=== PATIENT | female | born 1965 | race Caucasian/White ===

== ENCOUNTER 2018-08-14 13:41 | Day surgery (SDC) | payer BC ==
[~2018-08-14 13:41] MED LIST: Buffered Lidocaine 0.9% SYRIN* 5 ML/SYR SYRINGE INTRADERM ONE; Dexamethasone IV* 4 MG/ML 1 ML (4 MG) IV SLOW PU ONE; Famotidine IV* 10 MG/ML 2 ML (20 mg) IV ONE; Lactated Ringers 1000 ML Bag* 1,000 ML IV SCH
[2018-08-14] MEDS ORDERED: fentaNYL* 50 MCG/ML 2 ML VIAL (100 MCG VIAL) ONE ×2 (14:26→16:40)
[2018-08-14] MEDS ORDERED: Midazolam* 1 MG/ML 5 ML VIAL (5 MG) ONE ×2 (14:26→15:24)
[2018-08-14] MEDS ORDERED: Ketorolac INJ* 30 MG/ML 1 ML VIAL ONE (14:27)
[2018-08-14] MEDS ORDERED: Propofol* 10 MG/ML 20 ML BTL ONE (14:27)
[2018-08-14] MEDS ORDERED: Lidocaine 2% PF * 5 ML VIAL ONE (14:27)
[2018-08-14] MEDS ORDERED: Dexamethasone IV* 4 MG/ML 1 ML (4 MG) ONE (14:29)
[2018-08-14] MEDS ORDERED: Famotidine IV* 10 MG/ML 2 ML (20 mg) ONE (14:29)
[2018-08-14] MEDS ORDERED: ceFAZolin 2 GM PREMIX in ORs 2 GM/50 ML BAG IVPB ONE (14:35)
[2018-08-14] MEDS ORDERED: ROPIVACAINE 5 MG/ML 30 ML BTL (0.5%) ONE ×2 (14:46→14:47)
[2018-08-14] MEDS ORDERED: Ondansetron INJ* 2 MG/ML VIAL ONE (14:55)
[2018-08-14] MEDS ORDERED: KETAMINE HCL* 50 MG/ML 10 ML VIAL ONE (15:24)
[2018-08-14] MEDS ORDERED: Ondansetron INJ* 2 MG/ML VIAL IV PRN (17:41)
[2018-08-14] MEDS ORDERED: oxyCODONE/Acetamin 5/325 MG* TAB PO PRN (17:41)
[2018-08-14] MEDS ORDERED: Naloxone* 0.4 MG/ML 1 ML VIAL IV PRN (17:41)
[2018-08-14 18:36] VITALS: BP 124/65
== END 2018-08-14 19:06 | disposition home or self-care (01) ==
LOC: OR 13:41
PROVIDERS: ATTEND Plastic Surgery
DX: M18.12 Unilateral primary osteoarthritis of first carpometacarpal joint, left hand (principal); M19.90 Unspecified osteoarthritis, unspecified site
CPT/HCPCS: 76000; 88304; 88311; J0690; J1100; J1885; J2250; J2405; J2704; J2795; J3010

== ENCOUNTER → 2019-01-10 05:33 | Day surgery (SDC) | payer BC ==
--- NOTE | 2019-01-03 11:07 | HP ---
HISTORY AND PHYSICAL: DATE OF ADMISSION: 01/10/19 PROVIDER: Dr. Nora Oshea* (dictated by TED Shaffer). HISTORY OF PRESENT ILLNESS: Ms. Rasmussen is a 53-year-old woman who complains of months of severe right hand numbness and pain. She states pain is 9/10 in the right hand in the median nerve distribution. Her pain is made worse at night. She describes weakness in the hand with grasping items and pinching items. She has attempted nighttime splinting and activity modifications without any improvement. She had an EMG which was performed on her right upper extremity, which showed right carpal tunnel syndrome and borderline ulnar neuropathy at the elbow. The patient would like to proceed with a right carpal tunnel release performed by Dr. Nora Oshea. PAST MEDICAL HISTORY: 1. Right ACL tear. 2. Bilateral shoulder pain and surgery. 3. Left basal joint arthritis. PAST SURGICAL HISTORY: 1. ACL reconstruction. 2. Bilateral shoulder surgery. 3. Left rotator cuff repair. 4. Right capsulotomy. 5. Venous stripping. 6. Left basal joint reconstruction. MEDICATIONS: Gabapentin. ALLERGIES: No known drug allergies. FAMILY HISTORY: Maternal diabetes, heart disease, and hypertension. 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 She denies any tobacco or recreational drug use. She drinks 5 glasses of wine per week with dinner. She is normally very active and she is right-hand dominant. REVIEW OF SYSTEMS: General: The patient denies any fevers, chills, or night sweats. No known anesthesia problems. HEENT: The patient denies any headaches or lightheadedness. Cardio: The patient denies any chest pain, heart palpitations, or edema. Pulmonary: The patient denies any coughing or shortness of breath. GI: The patient denies any nausea, vomiting, constipation , or diarrhea. : The patient denies any urinary incontinence, frequency, or urgency. MSK: The patient denies any back pain or chronic fractures. Integument: The patient denies any rashes, lesions, lumps, or open sores. PHYSICAL EXAMINATION GENERAL: The patient is alert and oriented x3. Appropriate mood and affect. Appropriate dress and hygiene. Non-antalgic gait bilateral well coordinated upper and lower extremities. PULMONARY: Lungs are clear to auscultation bilaterally. No wheezes, rales, or rhonchi. CARDIO: Regular rate and rhythm. Normal S1 and S2. No appreciable S3 or S4. No murmurs, rubs, or gallops. MSK: Right upper extremity: The patient's skin is intact. No abrasions or open wounds. No palpable masses or lymph nodes. She has mild thenar atrophy when compared to the contralateral side. She has a positive Tinel's and Phalen' s at the wrist. Decreased sensation to light touch and pinprick over the median nerve distribution. 4/5 pinch and product developer strength. She has a 2+ radial pulse. ASSESSMENT: Right carpal tunnel syndrome. PLAN/RECOMMENDATIONS: To the OR for a right carpal tunnel release on 01/10/19. The risks and benefits of the operative treatment were discussed with the patient. She would like to proceed. The patient will follow up in 10 to 14 days for followup and suture removal. TED SHAFFER [id number]/[facility] #: [id number] [place]
[~2019-01-10 05:33] MED LIST changes: -Buffered Lidocaine 0.9% SYRIN* 5 ML/SYR SYRINGE INTRADERM ONE; +Buffered Lidocaine 1% SYRIN* 1 ML/SYRINGE INTRADERM ONE; +Bupivacaine 0.25% SDV PF* 10 ML VIAL INJ ONE; -Dexamethasone IV* 4 MG/ML 1 ML (4 MG) IV SLOW PU ONE; +Dexamethasone TAB* 4 MG ONE; +Dexamethasone TAB* 4 MG PO ONE; +DiMENhydriNATE IV* 50 MG/ML VIAL IV PUSH PRN; +Famotidine IV* 10 MG/ML 2 ML (20 mg) ONE; +KETAMINE HCL* 50 MG/ML 10 ML VIAL ONE; +Ketorolac INJ* 30 MG/ML 1 ML VIAL ONE; +Lidocaine 2% PF * 5 ML VIAL ONE; +Midazolam* 1 MG/ML 5 ML VIAL (5 MG) ONE; +Naloxone* 0.4 MG/ML 1 ML VIAL IV PRN; +Ondansetron ODT TAB* 4 MG ONE; +Ondansetron TAB* 4 MG PO ONE; +PROCHLORPERAZINE INJ 5 MG/ML 2 ML VIAL IV PRN; +Propofol* 10 MG/ML 20 ML BTL ONE; +ceFAZolin 2 GM PREMIX in ORs 2 GM/50 ML BAG IVPB ONE; +fentaNYL* 50 MCG/ML 2 ML VIAL (100 MCG VIAL) IV PRN; +fentaNYL* 50 MCG/ML 2 ML VIAL (100 MCG VIAL) ONE; +oxyCODONE/Acetamin 5/325 MG* TAB PO PRN
[2019-01-10 08:13] VITALS: BP 104/72
--- NOTE | 2019-01-10 23:19 | OP ---
DATE OF OPERATION: 01/10/19 - [facility] DATE OF : [birth year] ATTENDING SURGEON: Nora Oshea MD TIMBER INSPECTOR: TED Jordan. Ms. Rios did help throughout the procedure with preparation of the hand, wound retraction, and wound closure. ANESTHESIOLOGIST: Dr. Miller. ANESTHESIA: Local MAC. PRE-OP DIAGNOSIS: Right carpal tunnel syndrome of the wrist, median nerve compression at the wrist. POST-OP DIAGNOSIS: Right carpal tunnel syndrome of the wrist, median nerve compression at the wrist. OPERATIVE PROCEDURE: Open right carpal tunnel release of the wrist. TOURNIQUET TIME: 6 minutes. ESTIMATED BLOOD LOSS: Less than 25 cc. COMPLICATIONS: None. SPECIMEN: None. BRIEF HISTORY/INDICATION: Ms. Rasmussen is a 53-year-old female with 6 months or more of right hand numbness and pain. She was diagnosed with carpal tunnel syndrome, severe on EMG nerve conduction study. She failed conservative treatment. Due to continued pain and numbness, she wished to proceed with open carpal tunnel release at the right wrist. Informed consent was obtained from the patient. She understood the risks of surgery included, but were not limited to bleeding, infection, damage to nearby structures, continued pain, need for further surgery, continued symptoms, slight weakness and numbness, anesthesia complications, stroke, heart attack, blood clot and . She wished to proceed. INTRAOPERATIVE FINDINGS: Intraoperatively the patient does have a thickened transverse carpal tunnel ligament and synovitis around the tendons of the carpal tunnel. DESCRIPTION OF PROCEDURE: Ms. Rasmussen was identified in the preanesthesia unit. Her right wrist was marked as the correct operative site. Informed consent was signed and placed in the chart. The patient was taken to the operating room and placed under local MAC anesthesia. Tourniquet was placed on the right upper arm. Right upper extremity was prepped and draped in the usual sterile fashion. Preop time-out was made to correctly identify the patient, side, and site. Appropriate perioperative antibiotics were given within 1 hour of incision. 10 cc of 0.55 Marcaine was placed in the carpal tunnel and subcutaneous tissue without difficulty. Tourniquet was inflated. A 3 cm longitudinal incision was made over the thenar crease. Tenotomy scissors were used to dissect down to the palmar fascia. Palmar fascia was incised in line with the skin incision. The transverse carpal ligament was visualized. A #15 blade was used to meticulously incise the transverse carpal tunnel ligament in a longitudinal fashion, continued proximally until there was no further compression of the median nerve, this was continued distally until the palmar fat was encountered and there was no additional compression of the nerve. The carpal tunnel contents were noted to have synovitis and inflamed tissue. The nerve had some obvious compression there. No other abnormalities were noted. Tourniquet was turned down at 6 minutes. The wound was copiously irrigated with sterile saline. The incision was closed with interrupted vertical mattress 3-0 nylon suture. Sterile Xeroform, 4x4s, and Webril were used to cover the incisions. Well padded volar plaster splint was applied. The patient will be nonweightbearing right upper extremity. She will be encouraged to move her thumb and all fingers. She will elevate the hand, use some ice. She was taken to PACU in stable condition and will follow up in 2 weeks' time for a recheck. [id number]/[facility] #: [id number] TIMBO
== END | disposition home or self-care (01) ==
LOC: OR 05:33
PROVIDERS: ATTEND Orthopaedic Surgery Adult Reconstructive Orthopaedic Surgery
DX: G56.01 Carpal tunnel syndrome, right upper limb (principal)
CPT/HCPCS: A9270-GY; J0690; J1885; J2250; J2704; J3010; J3490; J8540

== ENCOUNTER 2019-07-18 09:00 | Observation (INO) | payer BC ==
--- NOTE | 2019-07-22 13:17 | HP ---
HISTORY AND PHYSICAL: DATE OF ADMISSION/SURGERY: 07/30/19 DATE OF OFFICE VISIT: 07/22/19 SURGEON: Nora Oshea MD * (DICTATED BY TED ESTRADA) PROCEDURE: Right total knee arthroplasty. CHIEF COMPLAINT: Right knee pain. HISTORY OF PRESENT ILLNESS: Ms. Rasmussen is a 54-year-old female with end- stage osteoarthritis of the right knee. She has failed conservative treatment and elected to proceed with a right total knee arthroplasty. PAST MEDICAL HISTORY: Denies. PAST SURGICAL HISTORY: Bilateral shoulder arthroplasties, left knee arthroscopy x1, right knee arthroscopy x5, left basal joint arthroplasty, and right carpal tunnel release. CURRENT MEDICATIONS: None. ALLERGIES: None. FAMILY HISTORY: Coronary artery disease and diabetes. SOCIAL HISTORY: She is a 54-year-old female. She lives with her . She does not smoke or drugs. Uses occasional alcohol. REVIEW OF SYSTEMS: A complete 14-point review of systems was reviewed with the patient. It was all negative or noncontributory. She denies history of DVT, PE , hepatitis, HIV, or anesthesia problems. PHYSICAL EXAMINATION GENERAL: She is well developed, well nourished, in no acute distress. VITAL SIGNS: The patient stands 69 inches tall, weighs 154 pounds. Blood pressure 120/88, heart rate 62. HEENT: Normocephalic, atraumatic. NECK: Supple. No palpable lymph nodes. PULMONARY: The lungs are clear to auscultation bilaterally. CARDIO: Regular rate and rhythm. Strong S1, S2. ABDOMEN: Soft, nontender, nondistended. NEUROLOGICAL: She is alert and oriented x3. MUSCULOSKELETAL: Right lower extremity: The skin is intact. There are no open wounds or abrasions. There is a moderate effusion of the right knee joint. She has some tenderness over the medial and lateral joint line. Range of motion is 10 to 120 degrees of flexion. There is some MCL laxity. She has a 2+ dorsalis pedis pulse. She is able to dorsiflex and plantarflex and has intact sensation. ASSESSMENT AND PLAN: Ms. Rasmussen is a 54-year-old female with end-stage osteoarthritis of the right knee. She has failed conservative treatment and elected to proceed with a right total knee arthroplasty. The surgery is scheduled for 07/30/[address] Oshea discussed the risks and benefits of the surgery at today's visit and all of her questions were answered. She will follow up with Dr. Oshea 2 weeks after the surgery. TED ESTRADA [id number]/[facility] #: [id number] [facility] CENTERIsak
[2019-07-29] MEDS ORDERED: Buffered Lidocaine 1% SYRIN* 1 ML/SYRINGE INTRADERM ONE (13:48)
[2019-07-30] MEDS ORDERED: Tranexamic Acid 1,000 MG in NS 0.9% 50 ML* (outpatient use) IV SCH ×2
[2019-07-30] MEDS ORDERED: Famotidine IV* 10 MG/ML 2 ML (20 mg) IV ONE (06:00)
[2019-07-30] MEDS ORDERED: Gabapentin CAP(*) 300 MG PO ONE (06:00)
[2019-07-30] MEDS ORDERED: Dexamethasone IV* 4 MG/ML 1 ML (4 MG) IV SLOW PU ONE (06:00)
[2019-07-30] MEDS ORDERED: Lactated Ringers 1000 ML Bag* 1,000 ML IV SCH (06:00)
[2019-07-30] MEDS ORDERED: celeCOXIB CAP* 200 MG PO ONE (06:00)
[2019-07-30] MEDS ORDERED: ROPIVACAINE 5 MG/ML 30 ML BTL (0.5%) ONE ×3 (10:55→13:39)
[2019-07-30] MEDS ORDERED: Bupivacaine 0.5% SDV PF* 30ML VIAL ONE (10:55)
[2019-07-30] MEDS ORDERED: fentaNYL* 50 MCG/ML 2 ML VIAL (100 MCG VIAL) ONE (10:55)
[2019-07-30] MEDS ORDERED: Midazolam* 1 MG/ML 2 ML VIAL (2 MG) ONE (10:55)
[2019-07-30] MEDS ORDERED: Lidocaine 2% PF * 5 ML VIAL ONE (10:55)
[2019-07-30] MEDS ORDERED: Dexamethasone IV* 4 MG/ML 1 ML (4 MG) ONE (11:21)
[2019-07-30] MEDS ORDERED: Buffered Lidocaine 1% SYRIN* 1 ML/SYRINGE INTRADERM ONE (11:22)
[2019-07-30] MEDS ORDERED: Gabapentin CAP(*) 300 MG ONE (11:22)
[2019-07-30] MEDS ORDERED: Famotidine IV* 10 MG/ML 2 ML (20 mg) ONE (11:22)
[2019-07-30] MEDS ORDERED: ceFAZolin 2 GM in NS PREMIX(*) 2 GM/100 ML BAG IVPB ONE (11:22)
[2019-07-30] MEDS ORDERED: celeCOXIB CAP* 200 MG ONE (11:22)
[2019-07-30] MEDS ORDERED: Acetaminophen IV 1GM/100ML * 1,000 MG/100 ML VIAL IVPB ONE (13:08)
[2019-07-30] MEDS ORDERED: Acetaminophen IV 1GM/100ML * 100 ML ONE (13:11)
[2019-07-30] MEDS ORDERED: HYDROmorphone INJ1* 1 MG/ML SYRINGE ONE ×3 (14:03→17:43)
[2019-07-30] MEDS ORDERED: EPHEDrine (Pressors)* 50 MG/ML VIAL ONE (14:10)
[2019-07-30] MEDS ORDERED: Ondansetron INJ* 2 MG/ML VIAL ONE (14:48)
[2019-07-30] MEDS ORDERED: Naloxone* 0.4 MG/ML 1 ML VIAL IV PRN (14:52)
[2019-07-30] MEDS ORDERED: HYDROmorphone INJ1* 1 MG/ML SYRINGE IV PRN (14:52)
[2019-07-30] MEDS ORDERED: DiMENhydriNATE IV* 50 MG/ML VIAL IV PUSH PRN (14:52)
--- OUTSIDE RECORDS SUMMARY | 2019-07-30 16:42 | XMS REPORT | Continuity of Care Document ---
:1965 External Reference #:[id number] Author Name Nora Oshea M.D. (transmitted by agent of provider Abhi Grijalva) Address [address] [place] [address] Care Team Providers Name Role Phone Shelby Escalante MD - Care Team Information Cushion Maker Hand [phone] Family Medicine Problems Active Problems Provider Date Localized, secondary osteoarthritis Nora Oshea M.D. Onset: 12/03/2018 Acquired genu valgum Nora Oshea M.D. Onset: 12/03/2018 Carpal tunnel syndrome of right wrist Nora Oshea M.D. Onset: 12/03/2018 Social History Type Date Description Comments Sex Unknown Tobacco Use Start: Unknown Never Smoked Cigarettes Smoking Status Reviewed: 07/22/19 Never Smoked Cigarettes ETOH Use Occasionally consumes wine Tobacco Use Start: Unknown Patient has never smoked Recreational Drug Use Denies Drug Use Exercise Type/Frequency Exercises regularly Allergies, Adverse Reactions, Alerts Description No Known Drug Allergies Medications Active Medications SIG Qnty Indications Ordering Provider Date No Active Medications Unknown 07/22/2019 History Medications Meloxicam take 1 tab by 30tabs Nora Oshea, 03/25/2019 - 15mg Tablets mouth with food M.D. 07/21/2019 once a day Immunizations Description No Information Available Vital Signs Date Vital Result Comment 07/22/2019 8:34am Height 69 inches 5'9" Weight 154.00 lb Heart Rate 62 /min BP Systolic 128 mmHg BP Diastolic 88 mmHg Body Temperature 97.0 F Pain Level 0 BMI (Body Mass Index) 22.7 kg/m2 03/25/2019 8:31am Height 69 inches 5'9" Weight 152.00 lb Heart Rate 62 /min BP Systolic 124 mmHg BP Diastolic 80 mmHg Respiratory Rate 16 /min Body Temperature 97.4 F Pain Level 0 BMI (Body Mass Index) 22.4 kg/m2 Results Description No Information Available Procedures Description No Information Available Medical Devices Description No Information Available Encounters Type Date Location Provider Dx Diagnosis Office Visit 01/25/2019 [facility] Nora Oshea, M25.531 Pain in right 9:15a at [place] M.D. wrist G56.01 Carpal tunnel syndrome, right upper limb M25.561 Pain in right knee M17.31 Unilateral post-traumatic osteoarthritis, right knee M21.061 Valgus deformity, not elsewhere classified, right knee M25.461 Effusion, right knee Assessments Date Code Description Provider 03/25/2019 M25.531 Pain in right wrist Nora Oshea M.D. 03/25/2019 G56.01 Carpal tunnel syndrome, right upper limb Nora Oshea M.D. 01/25/2019 M25.531 Pain in right wrist Nora Oshea M.D. 01/25/2019 G56.01 Carpal tunnel syndrome, right upper limb Nora Oshea M.D. 01/25/2019 M25.561 Pain in right knee Nora Oshea M.D. 01/25/2019 M17.31 Unilateral post-traumatic osteoarthritis, right Nora Oshea M.D. knee 01/25/2019 M21.061 Valgus deformity, not elsewhere classified, Nora Oshea M.D. right knee 01/25/2019 M25.461 Effusion, right knee Nora Oshea M.D. Plan of Treatment Future Appointment(s):07/30/2019 10:30 am - Franck Nayak PA-C at [facility]07/30/2019 10:30 am [facility] 10:30 am - Nora Oshea M.D. at [facility] Functional Status Description No Information Available Mental Status Description No Information Available Referrals Description No Information Available
--- OUTSIDE RECORDS SUMMARY | 2019-07-30 16:42 | XMS REPORT | Summary of Care ---
:1965 Author Organization [facility] Address [address] [place] [address] Care Team Providers Name Role Phone Shelby Escalante MD Primary Care Provider Reason for Visit Reason Comments Physical pre op--Rt knee Encounter Details Date Type Department Care Team Description 07/04/2019 Office Visit [facility] Preop examination ( Primary Dx); Practice Shelby Lyon MD Back spasm; [address] [place] [address] FH: heart disease; [place] [address] [place] [address] Need for hepatitis C screening test; [phone] Screening for lipid disorders; Chronic midline low back pain without sciatica; Screening mammogram, encounter for; Screen for colon cancer Allergies Active Allergy Reactions Severity Noted Date Comments Hydrocodone-Acetaminophen GI Reaction 07/26/2016 GI upset documented as of this encounter (statuses as of 07/04/2019) Medications Medication Sig Dispensed Refills Start Date End Date Status Tizanidine 2 MG Take 2-4 mg 10 Tab 1 07/04/2019 Active Oral by mouth TWO TabIndications: TIMES DAILY Back spasm, NEEDED Chronic midline (back low back pain spasm). without sciatica Tizanidine 2 MG Take 2-4 mg 10 Tab 1 12/21/2017 07/04/2019 Discontinued Oral by mouth TWO (Reorder) TabIndications: TIMES DAILY Back spasm NEEDED (back spasm). documented as of this encounter (statuses as of 07/04/2019) Active Problems Problem Noted Date FH: aortic aneurysm 07/26/2016 FH: heart disease 07/26/2016 documented as of this encounter (statuses as of 07/04/2019) Social History Tobacco Use Types Packs/Day Years Used Date Never Smoker 0 Smokeless Tobacco: Never Used Alcohol Use Drinks/Week oz/Week Comments Yes 3 Standard drinks or equivalent 3.0 Sex Assigned at Date Recorded Not on file Job Start Date Occupation Industry Not on file Not on file Not on file Travel History Travel Start Travel End No recent travel history available. documented as of this encounter Last Filed Vital Signs Vital Sign Reading Time Taken Comments Blood Pressure 124/84 07/04/2019 8:08 AM EST Pulse 67 07/04/2019 8:08 AM EST Temperature 36.2 07/04/2019 8:08 AM EST C (97.1 F) Respiratory Rate - - Oxygen Saturation 99% 07/04/2019 8:08 AM EST Inhaled Oxygen Concentration - - Weight 69.4 kg (153 lb) 07/04/2019 8:08 AM EST Height 174 cm (5' 8.5") 07/04/2019 8:08 AM EST Body Mass Index 22.93 07/04/2019 8:08 AM EST documented in this encounter Patient Instructions Patient InstructionsShelby Escalante MD - 07/04/2019 8:00 AM ESTGood lucwilliam with your surgery. Proceed with surgery as planned. Avoid non-steroidal anti-inflammatory drugs for 1 week prior to surgery (advil, aleve, ibuprofen, motrin, aspirin, naproxen) No food or liquids the morning of surgery. Call surgeon if develop respiratory illness, fever, or other illness. Letter sent to requesting surgeon listed above. I ordered laboratory tests and will send you the results. Your EKG today has a pulse of 56, and is otherwise normal. We often see a lower pulse in people whoexercise frequently and it is normal. I ordered your yearly mammogram. Your declined a influenza vaccine: Be careful and try to avoid exposure to influenza We never go your ColoGuard result: We called the company and they tell us it was never done. I reordered this today. documented in this encounter Progress Notes Shelby Escalante MD - 07/04/2019 8:00 AM EST PATIENT: Lizy Rasmussen : 1965 DATE OF SERVICE: 07/04/2019 Subjective SUBJECTIVE: Lizy Rasmussen is a 54-y.o. female who presents to the office today for a preoperative consultation at the request of Dr Oshea, who will perform a right total knee replacement (as never done in 2017) on 07/30/19. Back aches, requests a muscle relaxant for an upcoming trip. Patient complains of cardiac symptoms: none. Patient denies cardiac symptoms: chest pain, chest pressure/discomfort, palpitations, orthopnea, paroxysmal nocturnal dyspnea, exertional chest pressure /discomfort, lower extremity edema. Past history of pulmonary embolism/deep vein thrombosis: no. There is a history of bleeding complications: no Past history of anesthetic problem: no. Exercise capacity: Can you walk 2 blocks on level ground, or carry 2 bags of groceries up 2 flights of stairs? Yes Count the number of risk factors in the revised [place] cardiac risk index. ( RCRI): 1 High risk procedure: eg vascular surgery, any open intraperitoneal or intrathoracic 0 History of ischemic heart disease (history of OR or a positive exercise test , current complaint of chest pain considered to be secondary to myocardial ischemia, use of nitrate therapy, or ECG with pathological Q waves; do not count prior coronary revascularization procedure unless one of the other criteria for ischemic heart disease is present) 0 Hx of CHF, either systolic or diastolic 0 History of cerebrovascular disease (TIA or Stroke) 0 Diabetes mellitus requiring treatment with insulin 0 Preoperative serum creatinine >2.0 mg/dl The risk of cardiac , nonfatal myocardial infarction, and nonfatal cardiac arrest according to the number of above risk predictors is estimated to be: One risk factor - 1.0 percent (95% CI: 0.5 - 1.4) Screening for sleep apnea: Stop-Bang 0 Snoring: Do you snore loudly (louder than talking or heard through closed doors)? 0 Tired: Do you often feel tired, fatigued, or sleepy during the day? 0 Observed: Has anyone observed you stop breathing during your sleep? 0 Pressure: Do you have or are you being treated for high blood pressure? 0 BMI: >35 kg/m2? 1 Age: >50? 0 Neck circumference: >40 cm? 0 Gender: Male? "Low risk" for GUIDO: <3 questions "yes" Screening for Alzheimer's 1. During the past 12 months, have you experienced confusion or memory loss that is happening more often or is getting worse? No 2. During the past 7 days, did you need help with others to perform everyday activities such as eating, getting dressed, grooming, bathing, walking, or using the toilet? No 3. During the past 7 days, did you need help from others to take care of things such as laundry and housekeeping, banking, shopping, using the telephone, food preparation, transportation, or taking your own medications? No If positive, the minicog was administered. See Scanned tab. Current active problems are: Patient Active Problem List Diagnosis Date Noted FH: aortic aneurysm 07/26/2016 FH: heart disease 07/26/2016 Past Medical History: Diagnosis Date Anemia mild as a teen Arthritis knees, hands, back. Hx of low back pain she reports hx of spinal stenosis, saw Dr Chavez in the past. Hx of malignant melanoma 2017 seen and treated at [facility] [place] dermatology Past Surgical History: Procedure Laterality Date ARTHROSCOPY x 4 right knee, and an ACL reconstruction, open left knee surgery as a teen CARPAL TUNNEL RELEASE Right 10/2018 HAND ARTHROPLASTY NEC 08/14/2018 left thumb, Dr Gonzalez, [facility] HAND/FINGER ARTHROPLASTY Left left 1st MCP joint MI OSTEOTOMY, MANDIBLE surgery: maxillary and mandibular surgery, age 23. ROTATOR CUFF REPAIR Left TONSILLECTOMY UNLISTED PROCEDURE,MUSCULOSKELE Right 1999 right shoulder capsule repair Family History Problem Relation Age of Onset Diabetes Mother Hypertension Mother Heart Mother Heart Father Aneurysm Father aortic, ruptured? Heart Brother Diabetes Brother Heart Sister 10 heart surgery, age 10 and 40s Diabetes Sister Heart Brother 40 CABG in his 50s, OR 40; aortic aneurysm Hypertension Brother Heart Brother aortic dilatation Breast Cancer Paternal Grandmother Current Outpatient Medications Medication Sig Tizanidine 2 MG Oral Tab Take 2-4 mg by mouth TWO TIMES DAILY NEEDED ( back spasm). No current facility-administered medications for this visit. Allergies Allergen Reactions Vicodin [Hydrocodone-Acetaminophen] GI Reaction GI upset Social History Socioeconomic History Marital status: Spouse name: Not on file Number of children: Not on file Years of education: Not on file Highest education level: Not on file Occupational History Occupation: retired teacher Social Needs Financial resource strain: Not on file Food insecurity: Worry: Not on file Inability: Not on file Transportation needs: Medical: Not on file Non-medical: Not on file Tobacco Use Smoking status: Never Smoker Smokeless tobacco: Never Used Substance and Sexual Activity Alcohol use: Yes Alcohol/week: 3.0 standard drinks Types: 3 Standard drinks or equivalent per week Drug use: No Sexual activity: Yes Partners: Male Comment: Lifestyle Physical activity: Days per week: Not on file Minutes per session: Not on file Stress: Not on file Relationships Social connections: Talks on phone: Not on file Gets together: Not on file Attends yarsanism service: Not on file Active member of club or organization: Not on file Attends meetings of clubs or organizations: Not on file Relationship status: Not on file Intimate partner violence: Fear of current or ex partner: Not on file Emotionally abused: Not on file Physically abused: Not on file Forced sexual activity: Not on file Other Topics Concern Back Care Not Asked Bike Helmet Not Asked Blood Transfusions Not Asked Caffeine Concern Not Asked Exercise Yes Comment: daily Hobby Hazards Not Asked International Travel Not Asked Service Not Asked Occupational Exposure Not Asked Seat Belt Not Asked Self-Exams Not Asked Sleep Concern Not Asked Special Diet Yes Comment: vegetarian Stress Concern Yes Comment: vegetarian Weight Concern Not Asked Social History Narrative Lives with her Retired Teacher [employer], biology, food science, marine biology REVIEW OF SYSTEMS: General ROS: negative for - chills or fever, unexpected weight changes ENT ROS: negative for - headaches, nasal congestion, nasal discharge, sinus pain , sore throat or visual changes Respiratory ROS: negative for - cough, hemoptysis or shortness of breath Cardiovascular ROS: negative for - chest pain, dyspnea on exertion, edema or palpitations Gastrointestinal ROS: no abdominal pain, change in bowel habits, or black or bloody stools Genito-Urinary ROS: no dysuria, trouble voiding, or hematuria Neuro: denies headache, focal weakness, numbness Psych: Denies depression The patient has dentures: No The last dental visit was: yearly The patient has hearing aids: No Health Maintenence reviewed. Laboratory tests and mammogram ordered. She agrees to hep C screen, declines HIV screen She declines influenza vaccine. Objective OBJECTIVE: BP 124/84 (BP Location: Right arm, Patient Position: Sitting) | Pulse 67 | Temp 97.1 F (36.2 C) (Tympanic) | Ht 5' 8.5" (1.74 m) | Wt 153 lb ( 69.4 kg) | SpO2 99% | ? No | BMI 22.93 kg/m Mallampati score: 3 Physical Examination: General appearance - alert, well appearing, and in no distress Mental status - alert, oriented to person, place, and time, normal mood, behavior, speech, dress, motor activity, and thought processes Eyes - pupils equal and reactive, extraocular eye movements intact, sclera anicteric Ears - bilateral TM's and external ear canals normal Neck - supple, no cervical or supraclavicular adenopathy, carotids upstroke normal bilaterally, no bruits, thyroid exam: thyroid is normal in size without nodules or tenderness, no neck masses palpated. Chest/Lungs - clear to auscultation, no wheezes, rales or rhonchi, symmetric air entry, good aeration Heart - normal rate, regular rhythm, normal S1, S2, no murmurs, rubs, clicks or gallops Abdomen - soft, non tender on palpation, nondistended, no masses or hepatosplenomegaly, bowel soundsnormal, normal to percussion, no guarding or rebound. No costervertebral angle tenderness Neurological - alert, oriented, normal speech, no gross focal findings or movement disorder noted Extremities - dorsalis pedis pulses normal, no pedal edema, no clubbing or cyanosis ASSESSMENT: No contraindications to planned surgery 1. Preop examination 2. Back spasm 3. FH: heart disease 4. Need for hepatitis C screening test 5. Screening for lipid disorders 6. Chronic midline low back pain without sciatica 7. Screening mammogram, encounter for 8. Screen for colon cancer Clinical predictors: The RCRI score is: 1% Respiratory risk: The patient has pre-existing risks of none The risk of airway problems is low based on the mallampati score and the Stop-bang score. Anticoagulation: The patient is not on anti-platelet agents. Recommendations regarding stopping these medications before surgery: NA Plan PLAN: 1. Patient requires endocarditis prophylaxis: no. 2. Recommend perioperative beta-deepthi: not applicable. 3. Patient requires perioperative deep vein thrombosis prophylaxis: Yes Per surgical protocol for knee replacement. 4. General preoperative instructions for patient. Proceed with surgery as planned. Avoid non-steroidal anti-inflammatory drugs for 1 week prior to surgery (advil, aleve, ibuprofen, motrin, aspirin, naproxen) No food or liquids the morning of surgery. Call surgeon if develop respiratory illness, fever, or other illness. Letter sent to requesting surgeon listed above. Written preoperative instructions given. Patient Instructions Good luck with your surgery. Proceed with surgery as planned. Avoid non-steroidal anti-inflammatory drugs for 1 week prior to surgery (advil, aleve, ibuprofen, motrin, aspirin, naproxen) No food or liquids the morning of surgery. Call surgeon if develop respiratory illness, fever, or other illness. Letter sent to requesting surgeon listed above. I ordered laboratory tests and will send you the results. Your EKG today has a pulse of 56, and is otherwise normal. We often see a lower pulse in people whoexercise frequently and it is normal. I ordered your yearly mammogram. Your declined a influenza vaccine: Be careful and try to avoid exposure to influenza We never go your ColoGuard result: We called the company and they tell us it was never done. I reordered this today. ] Author: Shelby Escalante MD 07/04/2019 08:46 documented in this encounter Plan of Treatment Name Type Priority Associated Order Schedule Diagnoses COMPREHENSIVE Lab Routine Preop examination Expected: METABOLIC PANEL 07/04/2019 (Approximate), Expires: 07/04/2020 HEPATITIS C ANTIBODY Lab Routine Need for hepatitis Expected: WITH RELEX RNA, RT PCR C screening test 07/04/2019 (Approximate), Expires: 07/04/2020 LIPID PROFILE Lab Routine FH: heart disease Expected: Screening for lipid 07/04/2019 disorders (Approximate), Expires: 07/04/2020 URINE CULTURE (C&S) Lab Routine Preop examination 1 Occurrences starting 07/04/2019 until 12/31/2019 MAMMO SCREENING Imaging Routine Screening Expected: TOMOSYNTHESIS mammogram, 07/04/2019, BILATERAL encounter for Expires: 10/01/2020 CBC NO DIFFERENTIAL Lab Routine Preop examination Expected: 07/04/2019 (Approximate), Expires: 07/04/2020 AMBULATORY 12 LEAD EKG EKG Routine Preop examination Ordered: 07/04/2019 (GLOBAL) COLOGUARD STOOL DNA Lab - Exact Routine Screen for colon Ordered: 2018 TEST (EXTERNAL) [facility] cancer Health Maintenance Due Date Last Done Comments HEPATITIS C SCREENING 2003 ZOSTER IMMUNIZATION SERIES (1 2013 of 2) FECAL OCCULT BLOOD TEST 07/26/2017 07/26/2016 MAMMOGRAM (SCREENING) 10/24/2018 10/24/2017, 09/02/2016, 09/02/2016 PAP SMEAR 09/02/2019 09/02/2016, 09/02/2016, 09/02/2016 DEPRESSION SCREENING 07/04/2020 07/04/2019 INFLUENZA VACCINE (#1) 2020 Postponed from 04/28/2019 (Patient refused) LIPID DISORDER SCREENING 07/26/2021 07/26/2016 COLONOSCOPY SCREENING 07/26/2026 07/26/2016 (Declined) HPV IMMUNIZATION SERIES Aged Out No longer eligible based on patient's age to complete this topic MENINGOCOCCAL VACCINE IMM Aged Out No longer eligible based on patient's age to complete this topic PNEUMOCOCCAL 0-64 YRS Aged Out No longer eligible based on patient's age to complete this topic documented as of this encounter Results Not on filedocumented in this encounter Visit Diagnoses Diagnosis Preop examination - Primary Preoperative examination, unspecified Back spasm Other symptoms referable to back FH: heart disease Family history of other cardiovascular diseases Need for hepatitis C screening test Special screening examination for other specified viral diseases Screening for lipid disorders Chronic midline low back pain without sciatica Screening mammogram, encounter for Screen for colon cancer Special screening for malignant neoplasms, colon documented in this encounter Insurance Payer Benefit Plan / Subscriber ID Effective Dates Phone Address Type Group REGINALD MCCALLBS REGINALD MCCALLBS xxxxxxxxxxxx 2017-Present [employer] Name Account Type Relation to Date of Phone Billing Patient Address Lizy Rasmussen Personal/Family 1965 [phone] (Home) [address] [phone] [place], [place] (Work) [id number] documented as of this encounter
[2019-07-30] MEDS ORDERED: diPHENhydraMINE LIQ* 12.5 MG/5 ML UDC PO PRN (16:57)
[2019-07-30] MEDS ORDERED: Ondansetron ODT TAB* 4 MG PO PRN (16:57)
[2019-07-30] MEDS ORDERED: diPHENhydraMINE IV* 50 MG/ML 1 ml VIAL (BENADRYL) IV PRN (16:57)
[2019-07-30] MEDS ORDERED: Ondansetron TAB* 4 MG PO PRN (16:57)
[2019-07-30] MEDS ORDERED: Ondansetron INJ* 2 MG/ML VIAL IV PRN (16:57)
[2019-07-30] MEDS ORDERED: Morphine INJ* 2 MG/ML 1 ML SYRINGE (TWO MG - NEW SYRINGE VERSION) IV PRN (16:57)
[2019-07-30] MEDS ORDERED: Polyethylene Glycol 3350* 17 GM PACKET PO PRN (16:57)
[2019-07-30] MEDS ORDERED: Magnesium Hydroxide LIQ* 30 ML UDC PO PRN (16:57)
[2019-07-30] MEDS ORDERED: traMADol TAB* 50 MG PO PRN (16:57)
[2019-07-30] MEDS ORDERED: diPHENhydraMINE PO* 25 MG PO PRN (16:57)
[2019-07-30] MEDS: Lactated Ringers 1000 ML Bag* 1,000 ML IV SCH (18:50)
[2019-07-30] MEDS: Docusate CAP* 100 MG PO SCH (20:37)
[2019-07-30] MEDS: Magnesium Hydroxide LIQ* 30 ML UDC PO SCH (20:37)
[2019-07-30] MEDS: Cyclobenzaprine TAB* 10 MG PO PRN (20:38)
[2019-07-30] MEDS: oxyCODONE/Acetamin 5/325 MG* TAB PO PRN (20:38)
[2019-07-30] MEDS: Acetaminophen TAB* 325 MG PO SCH (20:38)
--- NOTE | 2019-07-30 21:12 | OP ---
Operative Report - Blank - Operative Report Date of Operation: 07/30/19 Note: SONA RUIZ 1965 Date of Surgery: 07/30/19 Nora Oshea MD Assistant Professor Of Biology: Xochitl JEAN did help throughout the procedure with preparation of the knee, wound retraction, manipulation of the knee, and wound closure. Anesthesiologist: Yaritza Hooker MD Anesthesia Type: Spinal Preoperative Diagnosis: Right severe post traumatic osteoarthritis of the knee Postoperative Diagnosis: As above Procedure Performed: Right Total Knee Arthroplasty with Removal of femoral and tibial hardware, modifier for additional operative time Tourniquet time: 88 minutes Complications: None Specimen: Bone and cartilage from the right knee joint sent to pathology. 2 screws sent to pathology. Hardware Used: Cemented Pablo [employer] Nephew total knee hardware was used - For the femur a size 6 narrow right oxinium legion posterior stabilized femoral component, for the tibia a size 5 right tad II tibial baseplate, for the insert a size 9mm 5-6 posterior stabilized articular polyethylene insert, and for the patella a size 32 3-peg all poly patella. The Biart Robotic Navigation system was used. Brief History/Indication: SONA RUIZ was known in clinic and had a history of severe right knee pain and swelling, s/p acl tear and reconstruction. She failed conservative treatment with anti-inflammatories, pain pills, intra-articular injections and physical therapy. She elected to undergo right total knee arthroplasty due to continued pain and decreased quality of life. Radiographs showed severe end stage posttraumaticosteoarthritis of the knee with bone on bone contact. She had both a femoral and tibial screw which both could require removal to place total knee hardware. She understood the removal of hardware increased her risk of intraoperative fracture. Informed consent was obtained from the patient. She understood the risks of surgery included but were not limited to: bleeding, infection, damage to nearby structures, intraoperative fracture, nerve palsy, failure of the hardware, early loosening, knee stiffness or loss of motion, anesthesia complications, stroke, heart attack, blood clot and . She wished to proceed. She elected to have the Navio Robotic system and accepted the pin site risks. Intra-Operative Findings: Intraoperatively the patient was noted to have severe loss of cartilage in all 3 compartments of the knee. She had both femoral and tibial screws removed in order to facilitate the placement of hardware. Multiple intraoperative views of the femur and tibia were obtained to ensure there were no intraoperative fractures. The complexity of the procedure did add at least 45 minutes to the overall operative time. Description of the Procedure: SONA RUIZ was identified in the preanesthesia unit. Her right knee was marked as the correct operative side. Informed consent was signed and placed in the chart. The patient was taken to the operating room and placed under anesthesia without complication. A smith catheter was placed. A tourniquet was placed on the right thigh. The right lower extremity was prepped and draped in the usual sterile fashion. Preoperative time-out was made to correctly identify the patient, side and site. Appropriate intraoperative antibiotics were given within one hour of incision. Tourniquet was inflated. A midline incision was made and carried sharply down to the extensor mechanism. A new 10 blade was used to make a standard medial parapatellar arthrotomy. The patella was subluxed laterally. Electrocautery was used to dissect soft tissue off the superomedial tibia to the midsagittal plane. The knee was flexed up. The anterior horn of the lateral meniscus and the ACL/PCL were sharply incised. The two checkpoint screws and the 4 pins were placed. The arrays were placed. The anatomy of the femur and tibia was mapped using the NavnanoMR system. The hardware sizes and placement was determined using the Biart robotic system. The Biart robotic jet was used to make the distal femoral cut. The distal femur was sized to a size 6. The size 6 multi-cutting jig was pinned on the distal femur. The oscillating saw was used to make the appropriate 4 chamfer cuts. Next the PCL was completely released. The extramedullary tibial cutting guide was pinned on the proximal tibia and the Navio angle guide was used to choose the angle of the cut. The oscillating saw was used to make the proximal tibial cut perpendicular to the mechanical axis of the tibia. The bone was carefully removed. The knee was brought out into full extension. The spacer block was placed and had excellent fit with the knee in full extension. The medial and lateral ligaments were well balanced. The flexion and extension gaps were well balanced. The knee was flexed up. Lamina sonar subsystem equipment operator was placed both medially and laterally. Any remaining meniscus was removed with electrocautery. Curved osteotome was used to remove any posterior osteophytes. The tibial tray and drop gay were placed and confirmed a satisfactory tibial cut. The size 6 right narrow femoral trial was impacted onto the distal femur. This trial had excellent fit and stability. The box for the posterior stabilized implant was prepared using a box cut osteotome and a reamer. During this step the femoral screw was encountered and removed. Intraoperative c arm views did not show any associated femoral fracture. Next a tibial tray trial and 9 mm insert trial was placed. The knee was taken through a range of motion and had full extension to 130 degrees of flexion. Patellofemoral tracking was satisfactory. The final Navio checkpoints were gathered. The two screws and four pins were carefully removed. The patella was inverted and sized to a size 32. Three peg holes were drilled through the size 32 drill guide. The trial patella was placed and the knee was taken through a range of motion. There was satisfactory patellofemoral tracking. All trials were removed. The tibia was subluxed anteriorly and sized to a size 5. The proximal tibial screw was carefully removed and this hole was bone grafted. Intraoperative c arm views confirmed no obvious fracture of the tibia. The proximal tibia was prepared with a size 5 keel punch. All bony cut surfaces were irrigated with sterile saline and dried. Final implants were cemented into place starting with the tibia, followed by the femur, and last the patella. A 9 mm insert trial was placed and the knee was brought into full extension. Tourniquet was turned down and the knee was copiously irrigated with sterile saline. Electrocautery was used to obtain meticulous hemostasis. Once the cement had fully cured, the insert trial was removed. Any excess cement was removed from around the hardware and capsule. Final insert chosen was a 9 mm posterior stabilized Tad II articular insert size 5-6. Stability of the insert was checked and noted to be stable. The extensor mechanism was closed using number 1 vicryls. The rest of the incision was closed in a layered fashion using 0 and 2-0 vicryls. The skin was closed using 3-0 nylon suture. Sterile xeroform, 4x4s and webril were used to cover the incision. Zhou wrap and cold pack were used to cover the dressings. The patients anesthesia was reversed without difficulty. She was taken to the PACU in stable condition. Intended weight-bearing will be as tolerated.
[2019-07-31] MEDS: ceFAZolin 1 GM ADVAN(*) 1 GM in NS 0.9% 50 ML* 50 ML IVPB SCH ×3 (00:07→15:38)
[2019-07-31] MEDS: oxyCODONE TAB* 5 MG TAB PO PRN ×3 (02:33→14:25)
[2019-07-31] MEDS: Acetaminophen TAB* 325 MG PO SCH ×2 (04:53→12:15)
[2019-07-31 05:02] LABS: Hematocrit 34 % (35-47); Hemoglobin 11.8 g/dL (12.0-16.0); Mean Platelet Volume 7.9 fL (7.4-10.4); Platelet Count 171 10^3/uL (150-450)
[2019-07-31] MEDS: Lactated Ringers 1000 ML Bag* 1,000 ML IV SCH (05:02)
[2019-07-31 05:22] LABS: BUN/Creatinine Ratio 22.4 (8-20); Calcium 8.7 mg/dL (8.6-10.3); EGFR African American 158.1 (>60); EGFR Non-African American 130.6 (>60); Potassium 3.9 mmol/L (3.5-5.0)
[2019-07-31] MEDS: oxyCODONE/Acetamin 5/325 MG* TAB PO PRN ×2 (05:58→11:54)
[2019-07-31] MEDS: Cyclobenzaprine TAB* 10 MG PO PRN (06:13)
[2019-07-31] MEDS: Docusate CAP* 100 MG PO SCH (08:34)
[2019-07-31] MEDS: Magnesium Hydroxide LIQ* 30 ML UDC PO SCH (08:35)
[2019-07-31] MEDS ORDERED: Apixaban* 2.5 MG TAB PO SCH (09:00)
[2019-07-31] MEDS ORDERED: Vitamin THERAPEUTIC TAB PO SCH (09:00)
--- NOTE | 2019-07-31 09:42 | PN ---
Progress Note - Progress Note Date of Service: 07/31/19 SOAP: Subjective: []Pt seen at bedside. She feels well, knee pain is well controlled. Complained of calf pain this morning which is improving with movement. Denies CP, SOB, dizziness, nausea. Objective: []Gen; NAD, appears well RLE: Right knee dressing CDI, thigh soft, df/pf intact, dp2+, sensation intact to light touch distally Left calf supple and nontender, right calf is tender without erythema or palpable cords Assessment: []POD 1 sp RTK Plan: []WBAT PT Eliquis 2.5 mg po BID x 30 days post op Dopplar study shows possible DVT, hospitalist service consulted for anticoag recommendation. Anticipate DC home after recommendation made Vital Signs Temp 97.9 F 07/31/19 15:58 Pulse 78 07/31/19 15:58 Resp 16 07/31/19 15:58 BP 101/56 07/31/19 15:58 Pulse Ox 99 07/31/19 15:58 Intake & Output 07/30/19 07/31/19 07/31/19 18:59 06:59 18:59 Intake Total 1505 2138 1225 Output Total 275 1140 2200 Balance 1230 998 -975 Weight 149 lb 3.2 oz Intake: IV Fluids 1400 980 637 LR 980 637 lr 1400 IVPB 58 58 ABX - CEFAZOLIN 58 58 Oral 105 1100 530 Output: Urine 2200 Terry 275 1140 Other: Estimated Void Medium Laboratory Last Values Hgb 11.8 g/dL (12.0-16.0) L 07/31/19 04:48 Hct 34 % (35-47) L 07/31/19 04:48 Plt Count 171 10^3/uL (150-450) 07/31/19 04:48 MPV 7.9 fL (7.4-10.4) 07/31/19 04:48 Sodium 135 mmol/L (135-145) 07/31/19 04:48 Potassium 3.9 mmol/L (3.5-5.0) 07/31/19 04:48 Chloride 103 mmol/L (101-111) 07/31/19 04:48 Carbon Dioxide 28 mmol/L (22-32) 07/31/19 04:48 Anion Gap 4 mmol/L (2-11) 07/31/19 04:48 BUN 11 mg/dL (6-24) 07/31/19 04:48 Creatinine 0.49 mg/dL (0.51-0.95) L 07/31/19 04:48 Est GFR ( Amer) 158.1 (>60) 07/31/19 04:48 Est GFR (Non-Af Amer) 130.6 (>60) 07/31/19 04:48 BUN/Creatinine Ratio 22.4 (8-20) H 07/31/19 04:48 Glucose 107 mg/dL (70-100) H 07/31/19 04:48 Calcium 8.7 mg/dL (8.6-10.3) 07/31/19 04:48
--- NOTE | 2019-07-31 14:22 | DS ---
Orthopedic Discharge Summary - Discharge Summary Date of Admission:07/30/19 Date of Discharge: 07/31/19 Date of Surgery: 07/30/19 Attending Orthopedic Provider: Dr Oshea Pre-operative Diagnosis: Right knee osteoarthritis Operative Procedure: right total knee replacement Disposition of Patient: home with outpatient physical therapy Condition of Patient: stable History: SONA RUIZ is a 54 year old F with years of increasingly severe right knee pain. Patient has failed conservative management and has elected to undergo a right total knee replacement Hospital Course: SONA was admitted to [facility] [place] on 07/30/19. Patient underwent a right total knee replacement without complication followed by a brief recovery in PACU and transfer to the Short Stay Surgical Unit in stable condition. Our physical therapy service also participated in this patients care. Post-op day 1: patient was alert and in no acute distress. Dressing was clean, dry and intact. Operative extremity dorsiflexion and plantarflexion intact, sensation intact to light touch distally, DP2+. Prior to DC: dressing was changed, incision was clean, dry and intact. Dopplar study was done showing distal DVT. Hospitalist service saw her and recommend no change in anticoagulation, and to repeat dopplar in 1 week to ensure no extension into popliteal/ femoral veins. Patient was deemed to be medically and orthopedically stable for discharge. Physical therapy goals were met. Home Medications Medication Instructions Recorded Confirmed Type Acetaminophen TAB* Tylenol TAB* 975 mg PO Q8HR tab 07/31/19 Rx Apixaban* [Eliquis*] 2.5 mg PO BID #60 tab 07/31/19 Rx Docusate CAP* [Colace Cap*] 100 mg PO BID PRN #90 cap 07/31/19 Rx oxyCODONE/Acetamin 5/325 MG* 2 tab PO Q4H PRN #70 tab MDD 10 07/31/19 Rx [Percocet 5/325 TAB*] Discharge Instructions following Orthopedic Surgery: Activity: * Weight Bearing as tolerated * Continue physical therapy and occupational therapy exercises as shown * start outpatient physical therapy Wound care: * OK to shower on post-op day 3, no bathing, swimming, or submerging wound. * Use gentle soap, pat dry. Cover with gauze, KEERTHI wrap or tape. Call Orthopedic office for: * Increased drainage * Redness * Increased pain * Fever Go to ER with shortness of breath or chest pain. Diet: * Regular diet * Increase fluids and fiber to prevent constipation. * Continue to use stool softeners, call office if no bowel motion within 48 hours. Medications See Home Medication List in your packet for medications that you should take after discharge. DVT Prophylaxis: Eliquis Dosin.5 mg, 1 tab every 12 hours x 30 days. Increases bleeding tendency Pain Control: Percocet Dosin/325 mg 1 tab for moderate pain and 2 tabs for severe pain every 4-6 hours as needed for pain. Maximum of 10 tabs per day. hold for sedation and wean off as soon as pain allows. Please note that Percocet contains Tylenol (acetaminophen). Maximum daily dose of Tylenol is 4000 mg from all sources. Antibiotics are required prior to any dental work. Repeat dopplar right leg in 1 week, results to orthopedics and PCP FOLLOW UP: Follow up with [[facility] ] Within 10-14 days, call for appointment Please call our office with any questions or concerns ([phone]) [facility]
[2019-07-31 16:10] VITALS: BP 101/56
--- NOTE | 2019-07-31 20:43 | CONS ---
AMENDED REPORT NOW INCLUDES DATE OF CONSULT CC: Dr. Escalante at [facility]; Dr. Oshea * MEDICINE CONSULTATION REPORT: DATE OF CONSULT: 07/31/19 REQUESTING PHYSICIAN: Dr. Oshea through [facility] REASON FOR CONSULT: Distal right lower extremity DVT. HISTORY OF PRESENT ILLNESS: Ms. Rasmussen is a 54-year-old woman who has a long history of right knee injuries and repairs that led to [id number] arthritis. She came for elective total knee replacement, right knee and this was completed yesterday on 07/30/19 without any immediate complications. Overnight and today , the patient felt more pain in her right calf than she did in her knee. She was assessed by the orthopedic team today and a lower extremity Doppler exam was obtained, which shows questionably occlusive thrombus in the calf without extension to or above the popliteal veins. There is also Hall's cyst seen. The patient had been started on apixaban 2.5 b.i.d. at 9 o'clock this morning per normal postop protocol for DVT prophylaxis. We are asked to comment on whether the patient needs to be on higher dose apixaban or whether she should go home today or tomorrow from the hospital. The patient denies any history of blood clots, but has had varicose veins in the past including some varicose vein surgeries. She is otherwise healthy. She denies any fever or major calf swelling. PAST MEDICAL HISTORY: Denies. PAST SURGICAL HISTORY: 1. Bilateral shoulder arthroplasty. 2. History of right knee arthroscopy x5. 3. Left knee arthroscopy x1. 4. Right carpal tunnel release. 5. Left basal joint arthroplasty. MEDICATIONS: Admission medications: None. Current medications: 1. Acetaminophen as needed. 2. Apixaban 2.5 mg p.o. b.i.d. 3. Bisacodyl 10 mg KS daily p.r.n. constipation. 4. Cyclobenzaprine 10 mg p.o. q.6 hours p.r.n. muscle spasms. 5. Diphenhydramine 25 mg IV p.r.n. pruritus. 6. Colace 100 mg p.o. b.i.d. 7. Lactulose 30 mL p.o. b.i.d. p.r.n. constipation. 8. Milk of magnesia as needed for constipation. 9. Morphine 2 mg IV q.4 hours p.r.n. pain. 10. Ondansetron 4 mg IV q.6 hours p.r.n. nausea. 11. Oxycodone/acetaminophen 5/325 mg 2 tabs p.o. q.4 hours p.r.n. severe pain. 12. Tramadol 50 mg p.o. q.6 hours p.r.n. moderate pain. Of note, she has only received oxycodone 10 mg twice in the last 12 hours. ALLERGIES: None. SOCIAL HISTORY: She lives with her . She does not smoke or use drugs and uses occasional alcohol. FAMILY HISTORY: Notable for father of cardiac aneurysm. Mother of unknown causes when the patient was very young, possibly esophageal disease or cancer. She had a brother who also of a cardiac aneurysm. REVIEW OF SYSTEMS: The patient denies any fevers, night sweats, or weight loss. The patient denies any thyroid problems. The patient denies any history of DVT herself or her family. The patient denies any chest pain or palpitations. The patient denies any shortness of breath or cough. Remainder of 14-point review of systems is negative other than mentioned in the HPI. PHYSICAL EXAMINATION: Temperature is 36.6, pulse 78, respirations 16, blood pressure is 101/56, O2 sats 99%. General: She is a well appearing, middle- aged woman, in no acute distress. Head: Normocephalic, atraumatic. Sclerae anicteric. Pupils equal, round, and reactive to light and accommodation. Oropharynx is moist. No lesions. Neck: No JVD, no carotid bruits, no thyromegaly. There is no cervical adenopathy. Lungs: Clear to auscultation and percussion bilaterally. Heart: Regular rate and rhythm without murmurs or gallops. Abdomen: Soft, nontender. Positive bowel sounds. No hepatosplenomegaly. Extremities: The right knee is in the bandage and cooling pack, cooling system. The distal right calf area is mildly tender to palpation. There is no peripheral edema. Dorsalis pedis pulses are 2+ bilaterally. There is no edema in the left lower extremity. The patient is ambulatory. Neurologic: Alert and oriented x3. Moves all 4 extremities, equal power. LABORATORY DATA AND DIAGNOSTIC STUDIES: Hemoglobin 11.8, hematocrit 34%, platelets 171. Sodium 135, potassium 3.9, chloride 103, bicarb 28, BUN 4, creatinine 0.49, glucose 107. Calcium 8.7. Venous Doppler report as described above. X-ray of lower extremity taken today on the right showed normal alignment, right knee arthroplasty. Pathology is pending. Preop EKG on 07/04/19 from [facility] showed sinus bradycardia, otherwise normal EKG. ASSESSMENT AND RECOMMENDATIONS: The patient is a 54-year-old woman postop day # 1 from right-sided total knee replacement who presents with distal DVT. The only realistic risk of this DVT is that it could progress over the next few days. I do not think it will progress now that she is on prophylaxis dose of Eliquis. My recommendation is that she will be discharged tonight and have a repeat DVT study in about 5 to 7 days. I have put the order into the discharge packet and this should be done at [facility] to ensure that we can compare the old and new images easily in our system. If the patient shows progression of DVT clinically or on imaging next week, the dose of Eliquis will be 10 mg twice a day for 7 days and then 5 b.i.d. for 1 or 2 months. Thank you for this consultation. [id number]/[facility] #: [id number] [facility]ENTER[facility]ak
== END 2019-07-31 16:50 | disposition home or self-care (01) ==
LOC: AA 07-30 09:45 → INTOOBSV 07-30 09:45 → SSU 07-30 16:57
PROVIDERS: ADMIT Orthopaedic Surgery Adult Reconstructive Orthopaedic Surgery; ATTEND Orthopaedic Surgery Adult Reconstructive Orthopaedic Surgery
DX: M17.11 Unilateral primary osteoarthritis, right knee (principal); M25.561 Pain in right knee; M71.20 Synovial cyst of popliteal space [Baker], unspecified knee; Z87.39 Personal history of other diseases of the musculoskeletal system and connective tissue; Z79.899 Other long term (current) drug therapy
CPT/HCPCS: 36415; 76000; 80048; 85014; 85018; 85049; 88300; 88305; 88311; 96365; A9270-GY; C1776; G0378; J0690; J1100; J1170; J2250; J2405; J2795; J3010; J3490